=== PATIENT | female | born 1960 | race Caucasian/White ===

== ENCOUNTER → 2020-02-14 13:58 | Outpatient (CLI) | payer MEDICAID, SELFPAY ==
[2020-02-14 15:19] LABS: AST(SGOT) 15 U/L (15-37); Alanine Aminotransfer ALT/SGPT 24 U/L (13-56); Albumin, Serum 3.7 g/dL (3.2-5.0); Alkaline Phosphatase 97 U/L (45-117); Anion Gap 2 (5-15); BUN 16 mg/dL (7-18); BUN/Creat Ratio 18.2 RATIO (10-20); Chloride 112 mmol/L (98-107); Cholesterol 262 mg/dL (200); Creatinine, Serum 0.88 mg/dL (0.55-1.02); EST Glomerular Filtration Rate 70 mL/min (>60); Est Glom Filt Rate - Afr Amer 85 mL/min (>60); Globulin 3.7 g/dL (2.2-4.2); Glucose 85 mg/dL (74-106); High Density Lipoprotein 70 mg/dL; Potassium 3.9 mmol/L (3.5-5.1); Protein, Total 7.4 g/dL (6.4-8.2); Sodium Level 144 mmol/L (136-145); Triglycerides 203 mg/dL; Very Low Density Lipoprotein 41 mg/dL (5-40)
[2020-02-14 15:24] LABS: Hemoglobin A1c 5.5 % (3.8-5.6)
[2020-02-16 14:42] LABS: Vitamin D,25 Hydroxy 34.4 ng/mL
== END ==
PROVIDERS: Referring Provider Family Medicine; Visit Provider Family Medicine
DX: E78.5 Hyperlipidemia, unspecified (principal); E55.9 Vitamin D deficiency, unspecified; R73.03 Prediabetes
CPT/HCPCS: 36415; 80053; 80061; 82306; 83036